=== PATIENT | male | born 1955 | race Caucasian/White ===

== ENCOUNTER 2017-04-19 07:15 | Day surgery (SDC) | payer BC ==
[~2017-04-19 07:15] MED LIST: GENTAMICIN SULFATE 80 MG in DEXTROSE 5 % IN WATER 100 ML IV PRN; metroNIDAZOLE/SODIUM CHLORIDE 500 MG/100 ML BAG IV PRN
[2017-04-19] MEDS ORDERED: RINGER'S SOLUTION,LACTATED 1,000 ML IV ONE (07:45)
[2017-04-19 09:53] VITALS: BP 132/82
== END 2017-04-19 07:16 | disposition home or self-care (01) ==
LOC: AMB 07:15
PROVIDERS: ATTEND Urology
PROC: 0V903ZX Drainage of Prostate, Percutaneous Approach, Diagnostic (ICD-10-PCS; principal; 2017-04-19 08:00)
DX: N40.0 Benign prostatic hyperplasia without lower urinary tract symptoms (principal); N41.1 Chronic prostatitis; I10 Essential (primary) hypertension; E78.00 Pure hypercholesterolemia, unspecified; E66.01 Morbid (severe) obesity due to excess calories; Z68.41 Body mass index [BMI] 40.0-44.9, adult; Z87.891 Personal history of nicotine dependence